=== PATIENT | male | born 1965 | race Caucasian/White ===

== ENCOUNTER 2017-05-12 18:52 | Inpatient (IN) | payer MEDICARE, MEDICAID ==
--- NOTE | 2017-05-12 19:21 | ED Physician Chart ---
ED Chief Complaint/HPI - Patient Information Date Seen:: 05/12/17 Time Seen:: 18:55 Chief Complaint:: Agitation History of Present Illness:: onset x 3 days of agitation and aggressive and hostile behavior; no report of SIs, trauma, H/As, neck pain, C/P, SOB, Abd. Pain, A/N/V/D/C, fever, chills, or urinary s/s Allergies:: Allergies Allergy/AdvReac Type Severity Reaction Status Date / Time No Known Allergies Allergy Verified 05/12/17 19:07 Vitals:: Vital Signs - 8 hr 05/12/17 18:54 Temp 97.5 F HR 74 RR 16 BP 150/79 O2 Sat % 98 Historian:: Patient, EMS Review:: Nurse's Note Reviewed, EMS run form Reviewed ED Review of Systems - Review of Systems General/Constitutional: No fever, No chills, No weight loss, No weakness, No diaphoresis, No edema, No loss of appetite Skin: No skin lesions, No rash, No bruising Head: No headache, No light-headedness Eyes: No loss of vision, No pain, No diplopia ENT: No earache, No nasal drainage, No sore throat, No tinnitus Neck: No neck pain, No swelling, No thyromegaly, No stiffness, No mass noted Cardio Vascular: No chest pain, No palpitations, No PND, No orthopnea, No edema Pulmonary: No SOB, No cough, No sputum, No wheezing GI: No nausea, No vomiting, No diarrhea, No pain, No melena, No hematochezia, No constipation, No hematemesis G/U: No dysuria, No frequency, No hematuria, No nacturia Musculoskeletal: No bone or joint pain, No back pain, No muscle pain Endocrine: No polyuria, No polydipsia Psychiatric: Prior psych history, No depression, Anxiety, No suicidal ideation, No homicidal ideation, No auditory hallucination, No visual hallucination Hematopoietic: No bruising, No lymphadenopathy Allergic/Immuno: No urticaria, No angioedema Neurological: No syncope, No focal symptoms, No weakness, No paresthesia, No headache, No seizure, No dizziness, No confusion, No vertigo ED Past Medical History - Past Medical History Obtainable: Yes Past Medical History: HTN, CVA/TIA, Dyslipidemia, PUD/GERD, Seizures Family History: Diabetes Melitus, HTN Social History: Non Smoker, No Alcohol, No Drug Use, Single, Care Facility Surgical History: None Psychiatricy History: Bipolar Medication: Reviewed Family Medical History - Family Member Mother History Unknown: Yes ED Physical Exam - Physical Examination General/Constitutional: Awake, Well-developed, well-nourished, Alert, No distress, GCS 15, Non-toxic appearing, Ambulatory Head: Atraumatic Eyes: Lids, conjuctiva normal, PERRL, EOMI Skin: Nl inspection, No rash, No skin lesions, No ecchymosis, Well hydrated, No lymphadenopathy ENMT: External ears, nose nl, TM canals nl, Nasal exam nl, Lips, teeth, gums nl , Oropharynx nl, Tonsils nl Neck: Nontender, Full ROM w/o pain, No JVD, No nuchal rigidity, No bruit, No mass, No stridor Respiratory: Nl effort/Exclusion, Clear to Auscultation, No Wheeze/Rhonchi/Rales Cardio Vascular: RRR, No murmur, gallop, rubs, NL S1 S2, Carotid/Femoral/Distal pulses equal bilaterally GI: No tenderness/rebounding/guarding, No organomegaly, No hernia, Normal BS's, Nondistended, No mass/bruits, No McBurney tenderness : No CVA tenderness Extremities: No tenderness or effusion, Full ROM, normal strength in all extremities, No edema, Normal digits & nails Neuro/Psych: Alert/oriented, DTR's symmetric, Normal sensory exam, Normal motor strength, Judgement/insight normal, Mood normal, Normal gait, No focal deficits Other Neuro/Psych comments:: + Psychomotor Agitation; Mood/Affect: Stable; no SIs Misc: Normal back, No paraspinal tenderness ED Labs/Radiology/EKG Results - Lab Results Comments:: unremarkable - EKG Interpretations EKG Time:: 19:34 Rate & Rhythm: 61; NSR Comments:: ROMELIA; LBBB; PVCs; non-specific st-t changes ED Septic Shock - . Is Septic Shock (SBP<90, OR Lactate>4 mmol\L) present?: No - <6hrs of presentation: Vital Signs: Vital Signs - 8 hr 05/12/17 18:54 Temp 97.5 F HR 74 RR 16 BP 150/79 O2 Sat % 98 ED Reassessment (Disposition) - Reassessment Reassessment Condition:: Improved - Diagnosis Diagnosis:: Dx: Agitation; Medical Clearance; Bipolar Disorder - Aftercare/Follow up Instructions Aftercare/Follow-Up Instructions:: Counseled pt regarding lab results/diagnosis & need follow up, Counseled pt & family regarding lab results/diagnosis & need follow up - Patient Disposition Discharge/Transfer:: Acute Care w/in this hosp Accepting Physician:: Dr. Starr Time Called:: 2044 Time Responded:: 20:45 Admitted to:: [facility] Spoke to:: Dr. Starr Admitting Medical Physician:: Dr. Starr Admitting Psych Physician:: Dr. Lopez Time:: 20:45 Condition at Disposition:: Stable, Improved ED Discharge Plan - Patient Disposition Instructions: Psychosis
[2017-05-12 20:14] LABS: % BASOPHILS 0.6 % (0.0-2.0); % EOSINOPHILS 2.4 % (0.0-5.0); % MONOCYTES 9.1 % (2.0-10.0); % NEUTROPHILS 58.9 % (40.0-80.0); EOSINOPHILE ABSOLUTE 0.1 Th/cmm (0.1-0.4); HEMATOCRIT 46.5 % (41.0-60); HEMOGLOBIN 15.4 gm/dL (12-16); LYMPHOCYTE ABSOLUTE 1.8 Th/cmm (1.5-3.0); MEAN CELL VOLUME 90.6 fl (80-99); MEAN CORPUSCULAR HGB CONC 33.1 pg (28.0-36.0); MEAN PLATELET VOLUME 9.9 fl; MONOCYTE ABSOLUTE 0.6 Th/cmm (0.3-1.0); NEUTROPHILE ABSOLUTE 3.7 Th/cmm (1.8-8.0); PLATELET COUNT 145 Th/cmm (150-400); RED BLOOD COUNT 5.14 Mil/cmm (4.30-5.70); RED CELL DISTRIBUTION WIDTH 12.9 % (11.5-20.0); WHITE BLOOD COUNT 6.2 Th/cmm (4.8-10.8)
[2017-05-12 20:18] LABS: ALB/GLOB RATIO 1.9 (1.0-1.8); ALBUMIN 4.2 gm/dL (4.2-5.5); ALKALINE PHOSPHATASE 56 U/L (34-104); ANION GAP 9.2 (7.0-16.0); BILIRUBIN,TOTAL 0.9 mg/dL (0.3-1.0); BUN - UREA NITROGEN 16 mg/dL (7-25); CALCIUM SERUM 9.1 mg/dL (8.6-10.3); CARBON DIOXIDE 26.4 mEq/L (21.0-31.0); CHLORIDE 103 mEq/L (98-107); CHOLESTEROL 127 mg/dL (<200); CREATININE - SERUM 0.6 mg/dL (0.7-1.3); GFR AFRICAN-AMERICAN > 60.0 ml/min (>90); GFR NON AFRICAN-AMERICAN > 60.0 ml/min; GLUCOSE 126 mg/dL (70-105); HDL -HIGH DENSITY LIPOPROTEIN 47 mg/dL (23-92); POTASSIUM SERUM 3.6 mEq/L (3.5-5.1); SGOT 11 U/L (13-39); SGPT/ALT 12 U/L (7-52); SODIUM SERUM 135 mEq/L (136-145); TOTAL PROTEIN,SERUM 6.4 gm/dL (6.0-8.3); TRIGLYCERIDES 109 mg/dL (<150)
[2017-05-12 20:27] LABS: ACETAMINOPHEN < 10.0 ug/mL (10.0-30.0); SALICYLATES (ASPIRIN) < 25.0 mg/L (30.0-100.0)
[2017-05-12] MEDS ORDERED: Magnesium Hydroxide (MOM) 30 mL UDC PO PRN (22:50)
[2017-05-12] MEDS ORDERED: Maalox 30 mL Cup PO PRN (22:50)
[2017-05-12 23:36] VITALS: BP 141/73
[2017-05-13] MEDS: Multivitamin Tab PO SCH (09:23)
[2017-05-13] MEDS ORDERED: LEVETIRACETAM PO SCH (10:15)
[2017-05-13] MEDS: Aspirin 81mg Chewable Tab PO SCH (10:53)
[2017-05-13] MEDS ORDERED: Non-Formulary Item 1 EA (Hydralazine Hcl [Hydralazine Hcl] 100 MG) PO SCH (14:00)
[2017-05-13] MEDS: Levetiracetam 500 mg/5mL 5mL UDSyr *for ORAL USE ONLY PO SCH ×2 (17:44→17:45)
[2017-05-13] MEDS: Atorvastatin Calcium 10 MG TAB PO SCH (21:00)
--- NOTE | 2017-05-13 23:44 | Consultation ---
DATE OF CONSULTATION: 05/13/2017 REFERRING PHYSICIAN: Dr. Ruiz. REASON FOR CONSULT: Medical management. HISTORY OF PRESENT ILLNESS: This is a 51-year-old gentleman with history of cerebrovascular accident with late effects including vascular dementia with behavioral disorder, essential hypertension, hypercholesterolemia, seizure disorder who was noted to have aggressive behavior at [facility] where he resides. The patient was transferred to the ER and now has been admitted to [facility] for further management and care. The patient is asleep, but arousable and not able to tell me any significant medical history. He answers with repeated "yes.". He appears to be comfortable, in no distress. PAST MEDICAL HISTORY: As noted above, also history of chronic anemia. PAST SURGICAL HISTORY: Unknown, but none listed. FAMILY HISTORY: Likely noncontributory to this admission. SOCIAL HISTORY: Unknown, but currently no tobacco, ETOH, or illicit drug usage. He lives at half-way facility. ALLERGIES: NKDA. OUTPATIENT MEDICATIONS: Aspirin 81 every day, atorvastatin 10 at bedtime, hydralazine 100 mg t.i.d., Keppra 750 b.i.d., lisinopril 20 mg b.i.d. REVIEW OF SYSTEMS: Unable to be done given patient's condition, but per notes from long term. No recent fever, chills, no weight loss. There is no report of chest pain, shortness of breath, or congestion. PHYSICAL EXAMINATION: VITAL SIGNS: Temperature 98.7, pulse 62, BP 141/73 with respiratory rate of 20, satting 97% on room air. GENERAL: He is a well-developed, well-nourished male, not in acute distress. HEAD AND NECK: Normocephalic, atraumatic. Pupils reactive to light. Extraocular movements are intact. NECK: There is no JVD or LAD. HEART: Regular rate and rhythm without any murmurs. LUNGS: Clear to auscultation bilaterally. ABDOMEN: Soft, supple, nontender, nondistended, normoactive bowel sounds. LOWER EXTREMITIES: No pedal edema. LABORATORY DATA: CBC within normal limits, platelet count is 145. Sodium 135. Rest of the BMP was within normal limits. Glucose 126. LFTs within normal limits. LDL 74, HDL 47. TSH 1.74. Toxicology results were negative. DIAGNOSTICS: EKG shows sinus rhythm at a rate of 61, no ST elevations or no ST wave changes. ASSESSMENT: 1. Acute psych decompensation. 2. History of vascular dementia with behavioral disorder. 3. CVA with late effects. 4. Essential hypertension. 5. History of seizure disorder. 6. History of chronic anemia. PLAN: The patient has been admitted to [facility] for further management and care. The patient will be kept on his current meds as scheduled. JOB# [id number] MTDD
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
[2017-05-14] MEDS: Aspirin 81mg Chewable Tab PO SCH (09:17)
[2017-05-14] MEDS: Multivitamin Tab PO SCH (09:18)
[2017-05-14] MEDS: Levetiracetam 500 mg/5mL 5mL UDSyr *for ORAL USE ONLY PO SCH ×2 (09:32→18:00)
[2017-05-14] MEDS: Atorvastatin Calcium 10 MG TAB PO SCH (21:16)
--- NOTE | 2017-05-15 03:40 | Progress Notes ---
DATE: 05/14/2017 SUBJECTIVE: Staff was spoken to. The patient is interviewed. Mood is noted to be irritable. Affect is constricted. The patient is still screaming and yelling and has been having difficult time to cope with the stress. The patient is very paranoid and is stating that there is no reason for him to be in here. The patient has been poorly cooperative at this time. ASSESSMENT: The patient is still psychotic and impulsive. PLAN: To continue the patient with current medications and encourage the patient to verbalize the concerns rather than to act out. JOB# [id number]
[2017-05-15] MEDS: Aspirin 81mg Chewable Tab PO SCH (09:33)
[2017-05-15] MEDS: Multivitamin Tab PO SCH (09:33)
[2017-05-15] MEDS: Levetiracetam 500 mg/5mL 5mL UDSyr *for ORAL USE ONLY PO SCH ×2 (09:38→16:34)
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
[2017-05-15] MEDS: Atorvastatin Calcium 10 MG TAB PO SCH (21:58)
--- NOTE | 2017-05-15 22:17 | Progress Notes ---
DATE: 05/15/2017 SUBJECTIVE: Staff was spoken to. The patient is interviewed. Mood is noted to be less irritable compared to the other days, insight and judgment are noted to be still impaired. Impulse control seems to be improving. No side effects to medications are noted. The patient has paranoia, but denies any command hallucinations. The patient, however, continues to be very resistive. The patient has no insight into his illness. ASSESSMENT: The patient is still impulsive. PLAN: To continue the patient with the current medications and follow up with the supportive therapy. JOB# [id number]
[2017-05-16] MEDS: Multivitamin Tab PO SCH (09:22)
[2017-05-16] MEDS: Aspirin 81mg Chewable Tab PO SCH (09:22)
[2017-05-16] MEDS: Levetiracetam 500 mg/5mL 5mL UDSyr *for ORAL USE ONLY PO SCH ×2 (09:50→17:09)
--- NOTE | 2017-05-16 21:49 | Progress Notes ---
DATE: 05/16/2017 PSYCHIATRIC PROGRESS NOTE SUBJECTIVE: Staff was spoken to. The patient is interviewed. Mood is noted to be irritable. Affect is constricted. The patient is screaming and yelling. The patient is very reluctant to participate in the groups. No side effects to the medications are noted. The patient tends to be isolative and withdrawn. Aggressive behavior is a major concern with this patient. ASSESSMENT: The patient is still impulsive. PLAN: To continue the patient with the supportive therapy and followup. [facility]# [id number]
[2017-05-16] MEDS: Atorvastatin Calcium 10 MG TAB PO SCH (22:00)
[2017-05-17] MEDS: Aspirin 81mg Chewable Tab PO SCH (09:29)
[2017-05-17] MEDS: Multivitamin Tab PO SCH (09:29)
[2017-05-17] MEDS: Levetiracetam 500 mg/5mL 5mL UDSyr *for ORAL USE ONLY PO SCH ×2 (10:28→16:45)
[2017-05-17] MEDS: Atorvastatin Calcium 10 MG TAB PO SCH (21:52)
--- NOTE | 2017-05-18 01:03 | Progress Notes ---
DATE: 05/17/2017 SUBJECTIVE: Staff was spoken to. The patient is interviewed. Mood is noted to be less irritable today. Insight and judgment are noted to be improving. Impulse control seems to be fair. The patient has been currently on low dose of Depakote that is 250 mg twice a day and Seroquel 25 mg at bedtime. The patient has been able to comply with the medications. No side effects to medications are noted. ASSESSMENT: The patient is stabilizing. PLAN: To continue the patient with the current medications. I encouraged the patient to verbalize the concerns rather than to act out. JOB# [id number]
[2017-05-18] MEDS: Multivitamin Tab PO SCH (09:32)
[2017-05-18] MEDS: Aspirin 81mg Chewable Tab PO SCH (09:32)
[2017-05-18] MEDS: Levetiracetam 500 mg/5mL 5mL UDSyr *for ORAL USE ONLY PO SCH (09:34)
--- NOTE | 2017-05-18 16:56 | Progress Notes ---
DATE: 05/18/2017 PSYCHIATRIC PROGRESS NOTE SUBJECTIVE: Staff was spoken to. The patient is interviewed. Mood is noted to be anxious. Affect is constricted. Insight and judgment noted to be improving. Impulse control seems to be fair. The patient is not presenting with any major behavioral problems. No acute psychotic symptoms are noted at this time. ASSESSMENT: The patient is stabilizing. PLAN: To continue the patient with current medications and discharge the patient for followup on outpatient basis. [facility]# [id number]
== END 2017-05-18 14:45 | disposition home or self-care (01) | DRG 885 ==
LOC: ER 18:52 → GERO2 21:45
PROVIDERS: ADMIT Psychiatry & Neurology Psychiatry; ATTEND Psychiatry & Neurology Psychiatry
DX: F23 Brief psychotic disorder (principal); F01.51 Vascular dementia, unspecified severity, with behavioral disturbance; F03.91 Unspecified dementia, unspecified severity, with behavioral disturbance; D64.9 Anemia, unspecified; F39 Unspecified mood [affective] disorder; G40.909 Epilepsy, unspecified, not intractable, without status epilepticus; F63.9 Impulse disorder, unspecified; I10 Essential (primary) hypertension; K21.9 Gastro-esophageal reflux disease without esophagitis; F31.9 Bipolar disorder, unspecified; E78.00 Pure hypercholesterolemia, unspecified; Z87.11 Personal history of peptic ulcer disease; Z83.3 Family history of diabetes mellitus; I69.30 Unspecified sequelae of cerebral infarction; Z82.49 Family history of ischemic heart disease and other diseases of the circulatory system
CPT/HCPCS: 36415-UA; 80053-TC; 80061-TC; 80320-TC; 80329-TC; 83036-90; 84443-TC; 85025-TC; 86592-TC; 93005; Z7610

== ENCOUNTER 2019-05-17 11:23 | Inpatient (IN) | payer MEDICARE, MEDICAID ==
[2019-05-17 17:13] VITALS: BP 160/88
[2019-05-17] MEDS ORDERED: Magnesium Hydroxide (MOM) 30 mL UDC PO PRN (17:38)
[2019-05-17] MEDS: Atorvastatin Calcium 10 MG TAB PO SCH (21:42)
[2019-05-18] MEDS ORDERED: Aspirin 81mg Chewable Tab PO SCH (09:00)
[2019-05-18] MEDS ORDERED: Multivitamin Tab PO SCH (09:00)
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
[2019-05-18] MEDS ORDERED: Maalox 30 mL Cup PO PRN (21:38)
[2019-05-18] MEDS ORDERED: Magnesium Hydroxide (MOM) 30 mL UDC PO PRN (21:41)
[2019-05-18] MEDS: Atorvastatin Calcium 10 MG TAB PO SCH (21:58)
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
[2019-05-19] MEDS ORDERED: LEVETIRACETAM PO SCH (09:00)
[2019-05-19] MEDS: Aspirin 81mg Chewable Tab PO SCH (09:58)
[2019-05-19] MEDS: Multivitamin Tab PO SCH (10:00)
--- NOTE | 2019-05-19 14:36 | Progress Notes ---
DATE: 05/19/2019 PSYCHIATRIC PROGRESS NOTE SUBJECTIVE: Staff was spoken to. The patient is interviewed. Mood is noted to be irritable. Affect is constricted. Insight and judgment at this time are noted to be still impaired. Impulse control is noted to be limited. Coping skills are noted to be limited. The patient has been having difficult time to cope with the stress. No side effects to the medications are noted. The patient is getting easily irritable and the patient is isolative and withdrawn with very limited participation in the groups. ASSESSMENT: The patient is still depressed and impulsive. PLAN: Plan to continue the patient with the supportive therapy and followup. JOB# [id number]
[2019-05-19] MEDS: Atorvastatin Calcium 10 MG TAB PO SCH (21:07)
--- NOTE | 2019-05-19 21:51 | Internal Medicine Prog Note ---
Internal Medicine Subjective - Subjective Service Date: 05/19/19 (No acute events noted) Patient seen and examined:: with staff, without staff Patient is:: awake Internal Medicine Objective - Results Recent Labs: Laboratory Last Values POC Glucose 84 MG/DL (70 - 105) 05/17/19 17:31 - Physical Exam Vitals and I&O: Vital Signs Temp 97.6 F 05/19/19 20:21 Pulse 67 05/19/19 21:06 Resp 20 05/19/19 20:21 BP 134/71 05/19/19 21:06 Pulse Ox 97 05/19/19 20:21 Intake & Output 05/19/19 05/19/19 05/20/19 06:59 18:59 06:59 Intake Total 240 120 Balance 240 120 Intake: Oral 240 120 Other: # Voids 2 2 # Bowel Movements 0 Active Medications: Current Medications Acetaminophen (Tylenol) 650 mg PO Q4HR PRN PRN Reason: Mild Pain 1-3 / Temp above 100 Stop: 07/17/19 21:37 Al Hydrox/Mg Hydrox/Simethicone (Maalox) 30 ml PO Q4HR PRN PRN Reason: GI DISTRESS Stop: 07/17/19 21:37 Aspirin (Aspirin Chewable) 81 mg PO DAILY [facility] Stop: 07/18/19 08:59 Last Admin: 05/19/19 09:58 Dose: 81 mg Atorvastatin Calcium (Lipitor) 10 mg PO HS [facility]; Protocol Stop: 07/18/19 20:59 Last Admin: 05/19/19 21:07 Dose: 10 mg Divalproex Sodium (Depakote Dr) 250 mg PO Q12HR [facility]; Protocol Stop: 07/18/19 08:59 Last Admin: 05/19/19 21:07 Dose: 250 mg Hydralazine HCl (Apresoline) 100 mg PO TID [facility] Stop: 07/18/19 08:59 Last Admin: 05/19/19 21:06 Dose: 100 mg Levetiracetam 500 mg/ (Levetiracetam 250 mg) 750 mg PO BID [facility] Stop: 07/18/19 16:59 Last Admin: 05/19/19 17:05 Dose: 750 mg Lisinopril (Zestril) 20 mg PO BID [facility] Stop: 07/18/19 08:59 Last Admin: 05/19/19 17:04 Dose: 20 mg Lorazepam (Ativan) 0.5 mg PO Q4HR PRN; Protocol PRN Reason: Anxiety Stop: 07/17/19 21:42 Magnesium Hydroxide (Milk Of Magnesia) 30 ml PO HS PRN PRN Reason: Constipation Stop: 07/17/19 21:40 Multivitamins/Vitamin C (Theragran) 1 tab PO DAILY [facility] Stop: 07/18/19 08:59 Last Admin: 05/19/19 10:00 Dose: 1 tab Quetiapine Fumarate (Seroquel) 25 mg PO HS [facility]; Protocol Stop: 07/18/19 20:59 Last Admin: 05/19/19 21:07 Dose: 25 mg Valproate Sodium (Depakene) 250 mg PO BID [facility]; Protocol Stop: 07/18/19 08:59 Last Admin: 05/19/19 17:05 Dose: 250 mg Zolpidem Tartrate (Ambien) 5 mg PO HS PRN PRN Reason: Insomnia Stop: 07/17/19 21:40 HEENT: PERRLA, EOMI Neck: No JVD Lungs: CTAB Cardiovascular: RRR, Normal S1, Normal S2, without murmur Extremities: clear - Procedures Procedures: Procedures Procedure Code Date BLOOD TRANSFUSION SERVICE 07298 09/29/11 CLOSED ENDOSCOPIC BIOPSY OF LARGE INTESTINE 45.25 09/29/11 COLONOSCOPY AND BIOPSY 49569 09/29/11 HEMODIALYSIS 39.95 09/29/11 INSERT NON-TUNNEL CV CATH [id number] 09/29/11 PACKED CELL TRANSFUSION 99.04 09/29/11 VENOUS CATHETERIZATION FOR RENAL DIALYSIS 38.95 09/29/11 Internal Medicine Assmt/Plan - Assessment Assessment: ACUTE PSYCH DECOMPENSATION HISTORY OF DEMENTIA WITH BEHAVIORAL DO HISRORY OF CVA WITH VASCULAR DEMENTIA ESSENTIAL HTN HISTORY OF HYPERLIPIDIMIA SEIZURE D/O - Plan Plan: CONT WITH CURRENT MGT AND CARE CONT WITH CURRENT HOME MEDS
[2019-05-20] MEDS: Aspirin 81mg Chewable Tab PO SCH (09:06)
[2019-05-20] MEDS: Multivitamin Tab PO SCH (09:06)
--- NOTE | 2019-05-20 12:23 | Consultation ---
DATE OF CONSULTATION: 05/19/2019 REFERRING PHYSICIAN: Bay Ruiz M.D. and John Lees M.D. TYPE OF CONSULTATION: Psychology. HISTORY OF PRESENT ILLNESS: The patient is a 53-year-old male. The patient is a resident of [facility]. The following is by review of the medical record and by the patient's self report. The patient is being admitted due to uncontainable behavior. The staff at the patient's facility reports that the patient had been getting easily upset and agitated along with screaming and yelling episodes. The staff also reported the patient was striking out and attempting to hit the staff members and was unable to be deescalated and contained at that level. Therefore, the patient was transferred here for stabilization. Upon interview, the patient does not know why he is being hospitalized and was unable to state where he was prior to his admission. PAST MEDICAL HISTORY: Please see history and physical by Dr. Starr. PAST PSYCHIATRIC HISTORY: The patient is under the care of Dr. Lees at the patient's placement. The patient's full psychiatric history is unavailable at the time of this clinical interview. SUBSTANCE ABUSE HISTORY: The patient did not answer questions about having any history of substance use or substance abuse. BRIEF PSYCHOSOCIAL HISTORY: The patient did not answer the question about occupational or educational history. Records indicate that the patient is and that his 's name is Charissa. The patient also has a daughter, Margi, who is involved in his care. The patient states that he is a Confucianism. The patient denied any current legal problems. The patient did not answer questions about history of physical or sexual abuse. MENTAL STATUS EXAMINATION: The patient appears to be older than his stated age. The patient's attitude is superficially cooperative, but mostly guarded. Eye contact is poor. Speech is loud. Mood is irritable. Affect is constricted. Thought process shows to be confused. The patient did not answer questions about experiencing suicidal or homicidal ideation, plan or intention. He did not answer the questions about experiencing auditory or visual hallucinations. However, there is some evidence of paranoid ideation. The patient's behavior has been difficult to redirect and to deescalate. Impulse control is inadequate. Concentration is poor and impaired. Sensorium is alert and oriented to self and place only. The patient did not participate in the memory assessment. It appears that the patient's short term and long-term memory may have deficits. This needs further evaluation. The patient did not participate in the interpretation of proverbs. Insight is poor. Judgment is impaired. DIAGNOSTIC IMPRESSION AXIS I: 1. Psychotic disorder, not otherwise specified. AXIS II: Deferred. AXIS III: Per Dr. Starr. TREATMENT PLAN: The patient has been seen by Dr. Ruiz for psychiatric evaluation and for the management of the patient's psychotropic medications. We will provide supportive psychotherapy to include reality orientation, differentiation and integration. We will provide limit setting and de-escalation as well as boundary definitions for the patient to appropriately interact with staff and to decrease his aggression and striking out behaviors. We will provide coping strategies for phase of life issues as well as for chronic mental illness. We will encourage the patient to verbally contract for safety, i.e., no harm to others and no harm to self. Thank you, Dr. Ruiz and Dr. Lees for this consult and the opportunity to participate with you in this patient's care. JOB# [id number] WILLIAM
--- NOTE | 2019-05-20 14:47 | Progress Notes ---
DATE: 05/20/2019 PSYCHIATRIC PROGRESS NOTE SUBJECTIVE: Staff was spoken to. The patient is interviewed. Mood is noted to be irritable. Affect is constricted. Insight and judgment are noted to be still impaired. Impulse control is noted to be limited. Coping skills are noted to be limited. The patient has been having difficult time to cope with the stress. No side effects to the medications are noted. The patient is noted to be extremely poor. The patient needs to be encouraged to get up and participate in the groups. ASSESSMENT: The patient is still impulsive. PLAN: To continue the patient with the supportive therapy and followup. JOB# [id number]
[2019-05-20] MEDS: Atorvastatin Calcium 10 MG TAB PO SCH (20:56)
[2019-05-21] MEDS: Aspirin 81mg Chewable Tab PO SCH ×2 (09:21→10:44)
[2019-05-21] MEDS: Multivitamin Tab PO SCH ×2 (09:22→10:45)
[2019-05-21] MEDS: Atorvastatin Calcium 10 MG TAB PO SCH (21:16)
--- NOTE | 2019-05-22 01:13 | Progress Notes ---
DATE: 05/21/2019 PSYCHIATRIC PROGRESS NOTE SUBJECTIVE: Staff was spoken to. The patient is interviewed. Mood is noted to be irritable. Affect is constricted. Insight and judgment are noted to be still impaired. Impulse control is noted to be limited. Coping skills are noted to be limited. The patient has no insight into his illness. The patient's coping skills are noted to be extremely poor at this time. The patient gets easily frustrated. Sleep is noted to be poor. Appetite is noted to be improving. ASSESSMENT: The patient is still impulsive. PLAN: To continue the patient with the supportive therapy and current medications. [facility]# [id number]
[2019-05-22] MEDS: Multivitamin Tab PO SCH (08:37)
[2019-05-22] MEDS: Aspirin 81mg Chewable Tab PO SCH (08:37)
[2019-05-22] MEDS: Atorvastatin Calcium 10 MG TAB PO SCH (21:14)
--- NOTE | 2019-05-22 21:20 | Internal Medicine Prog Note ---
Internal Medicine Subjective - Subjective Service Date: 05/22/19 (comfortable) Patient seen and examined:: without staff Patient is:: awake Internal Medicine Objective - Results Recent Labs: Laboratory Last Values POC Glucose 84 MG/DL (70 - 105) 05/17/19 17:31 - Physical Exam Vitals and I&O: Vital Signs Temp 98.5 F 05/22/19 20:35 Pulse 77 05/22/19 20:35 Resp 20 05/22/19 20:35 BP 143/57 05/22/19 20:35 Pulse Ox 97 05/22/19 20:35 Intake & Output 05/22/19 05/22/19 05/23/19 06:59 18:59 06:59 Intake Total 120 860 240 Balance 120 860 240 Intake: Oral 120 860 240 Other: # Voids 3 2 2 # Bowel Movements 0 0 Stool Characteristics Formed Formed Active Medications: Current Medications Acetaminophen (Tylenol) 650 mg PO Q4HR PRN PRN Reason: Mild Pain 1-3 / Temp above 100 Stop: 07/17/19 21:37 Al Hydrox/Mg Hydrox/Simethicone (Maalox) 30 ml PO Q4HR PRN PRN Reason: GI DISTRESS Stop: 07/17/19 21:37 Aspirin (Aspirin Chewable) 81 mg PO DAILY [facility] Stop: 07/18/19 08:59 Last Admin: 05/22/19 08:37 Dose: 81 mg Atorvastatin Calcium (Lipitor) 10 mg PO HS [facility]; Protocol Stop: 07/18/19 20:59 Last Admin: 05/21/19 21:16 Dose: 10 mg Divalproex Sodium (Depakote Dr) 250 mg PO Q12HR [facility]; Protocol Stop: 07/18/19 20:59 Hydralazine HCl (Apresoline) 100 mg PO TID [facility] Stop: 07/18/19 08:59 Last Admin: 05/22/19 14:00 Dose: 100 mg Levetiracetam 500 mg/ (Levetiracetam 250 mg) 750 mg PO BID [facility] Stop: 07/18/19 16:59 Last Admin: 05/22/19 16:46 Dose: 750 mg Lisinopril (Zestril) 20 mg PO BID [facility] Stop: 07/18/19 08:59 Last Admin: 05/22/19 16:46 Dose: 20 mg Lorazepam (Ativan) 0.5 mg PO Q4HR PRN; Protocol PRN Reason: Anxiety Stop: 07/17/19 21:42 Magnesium Hydroxide (Milk Of Magnesia) 30 ml PO HS PRN PRN Reason: Constipation Stop: 07/17/19 21:40 Multivitamins/Vitamin C (Theragran) 1 tab PO DAILY [facility] Stop: 07/18/19 08:59 Last Admin: 05/22/19 08:37 Dose: 1 tab Quetiapine Fumarate (Seroquel) 25 mg PO HS [facility]; Protocol Stop: 07/18/19 20:59 Last Admin: 05/21/19 21:16 Dose: 25 mg Valproate Sodium (Depakene) 250 mg PO BID [facility]; Protocol Stop: 07/18/19 08:59 Last Admin: 05/22/19 16:46 Dose: 250 mg Zolpidem Tartrate (Ambien) 5 mg PO HS PRN PRN Reason: Insomnia Stop: 07/17/19 21:40 HEENT: PERRLA, EOMI Neck: No JVD Lungs: CTAB Cardiovascular: RRR, Normal S1, Normal S2, without murmur Extremities: clear - Procedures Procedures: Procedures Procedure Code Date BLOOD TRANSFUSION SERVICE 86615 09/29/11 CLOSED ENDOSCOPIC BIOPSY OF LARGE INTESTINE 45.25 09/29/11 COLONOSCOPY AND BIOPSY 33641 09/29/11 HEMODIALYSIS 39.95 09/29/11 INSERT NON-TUNNEL CV CATH [id number] 09/29/11 PACKED CELL TRANSFUSION 99.04 09/29/11 VENOUS CATHETERIZATION FOR RENAL DIALYSIS 38.95 09/29/11 Internal Medicine Assmt/Plan - Assessment Assessment: ACUTE PSYCH DECOMPENSATION HISTORY OF DEMENTIA WITH BEHAVIORAL DO HISRORY OF CVA WITH VASCULAR DEMENTIA ESSENTIAL HTN HISTORY OF HYPERLIPIDIMIA SEIZURE D/O - Plan Plan: CONT WITH CURRENT MGT AND CARE CONT WITH CURRENT HOME MEDS Nutritional Asmnt/Malnutr-PDOC - Dietary Evaluation Malnutrition Findings (Please click <Entered> for more info): Nutritional Asmnt/Malnutrition Start: 05/20/19 10: 27 Text: Status: Complete Freq: Protocol: Document 05/20/19 10:27 MMHEIDE (Rec: 05/20/19 10:39 MMHEIDE VILLANUEVA [email or web address]) Nutritional Asmnt/Malnutrition Patient General Information Nutritional Screening Moderate Risk Diagnosis Psychosis Pertinent Medical Hx/Surgical Hx right sided CVA, left knee contracture, seizures, HTN, hyperlipidemia, Anemia. Subjective Information Patient was admitted from [facility]. Persian speaking. Current Diet Order/ Nutrition Support Mechanical soft, cardiac, nectar thick liquids, no added sodium Patient / S.O Not Indicated Pertinent Medications maalox, lipitor, MOM, Theragran Pertinent Labs POC glucose 84 Nutritional Hx/Data Height 1.68 m Height (Calculated Centimeters) 167.6 Current Weight (lbs) 74.843 kg Weight (Calculated Kilograms) 74.8 Weight (Calculated Grams) 99462.7 [place] Body Weight 142 % [place] Body Weight 116 Body Mass Index (BMI) 26.6 Recent Weight Change No Weight Status Overweight GI Symptoms GI Symptoms None Last BM 3/5 x 2 Difficult in: None Food Allergies No Cultural/Ethnic/Mormonism Belief none indicated Usual diet at home unknown Skin Integrity/Comment: Son 17, intact Current %PO Good (75-100%) Estimated Nutritional Goals BEE in Kcals: Using Current wt Calories/Kcals/Kg 75kg CBW 25-30 kcal/kg Kcals Calculated ~0086-5748 kcal/day Protein: Using Current wt Protein g/k.8-1 gm/kg Protein Calculated ~60-75 gm/day Fluid: ml ~6152-6771 ml/day (1 ml/kcal) Nutritional Problem No current Nutrition Prob Problem No nutrition diagnosis at this time Intervention/Recommendation Comments 1. Continue current diet as tolerated by patient. Expected Outcomes/Goals Expected Outcomes/Goals Adequate nutrition to meet >75 % estimated needs, improved labs, skin remains intact, weight maintenance or trend toward ideal body weight. F/U LR 05/26-
--- NOTE | 2019-05-22 22:24 | Progress Notes ---
DATE: 05/22/2019 PSYCHOLOGY PROGRESS NOTE SUBJECTIVE: The patient is seen and is interviewed. Case is discussed with staff. The patient presents as irritable and easily agitated. The patient has poor insight into his illness as well as the reasons for hospitalization. The patient continues to get frustrated. The patient claimed that his sleep is poor. OBJECTIVE: Mood is irritable. Affect is constricted. Thought process shows to be confused. The patient did not answer questions about experiencing hallucinations or delusions. The patient has been withdrawn in his room, but is impulsive with the staff and is easily agitated. ASSESSMENT: The patient's impulsivity persists. PLAN: We provided de-escalation and limit setting. We provided remotivation for the patient to become compliant and stay compliant with his care and treatment. We provided coping strategies for phase of life issues. We provided stress management to assist the patient in increasing his frustration tolerance. We will follow up in 2-3 days to continue the present treatment if the patient remains on the unit and is able to demonstrate the capacity to benefit from psychology services. JOB# [id number] WILLIAM
--- NOTE | 2019-05-23 00:29 | Progress Notes ---
DATE: 05/22/2019 PSYCHIATRIC PROGRESS NOTE SUBJECTIVE: Staff was spoken to. The patient is interviewed. Mood is noted to be irritable. Affect is constricted. Coping skills are noted to be extremely poor. The patient has been isolative and withdrawn. The patient is reluctant to participate in any of the groups. The patient gets easily frustrated when he is asked to get into the groups. Sleep is noted to be fair. Appetite is noted to be improving. No side effects to the medications are noted. ASSESSMENT: The patient is still impulsive. PLAN: To continue the patient with the current medications. I encouraged the patient to verbalize the concerns rather than to act out. JOB# [id number]
[2019-05-23] MEDS: Aspirin 81mg Chewable Tab PO SCH (08:36)
[2019-05-23] MEDS: Multivitamin Tab PO SCH (08:37)
[2019-05-23] MEDS: Atorvastatin Calcium 10 MG TAB PO SCH (20:57)
--- NOTE | 2019-05-24 00:50 | Progress Notes ---
DATE: 05/23/2019 PSYCHIATRIC PROGRESS NOTE SUBJECTIVE: Staff was spoken to. The patient is interviewed. Mood is noted to be irritable. Affect is constricted. The patient is isolative and withdrawn. Coping skills are noted to be extremely poor. Sleep and appetite are also noted to be very poor. The patient is reluctant to participate in any of the groups. ASSESSMENT: The patient is still impulsive. PLAN: To continue the patient with the supportive therapy and followup. JOB# [id number]
[2019-05-24] MEDS: Multivitamin Tab PO SCH (08:47)
[2019-05-24] MEDS: Aspirin 81mg Chewable Tab PO SCH (08:47)
--- NOTE | 2019-05-24 21:44 | Progress Notes ---
DATE: 05/24/2019 PSYCHOLOGY PROGRESS NOTE SUBJECTIVE: The patient is seen and is interviewed. Case is discussed with staff. The patient continues to present as irritable. Staff reports the patient continues to isolate. The patient is not participating in the milieu therapy. According to staff, the patient is having difficulty providing information to the clinical questions being presented to him. OBJECTIVE: Mood is irritable. Affect is constricted. Thought process shows to be confused. The patient did not answer questions about experiencing hallucinations or delusions. The patient is reluctant to follow through with care and is only intermittently compliant. ASSESSMENT: The patient's impulsivity persists. PLAN: We will continue the supportive psychotherapy to include remotivation for the patient to become compliant and stay compliant with all aspects of his care and treatment. We encouraged the patient to verbalize his concerns to the staff and to interact appropriately versus acting out. We provided coping strategies for phase of life issues. We will follow up in 2-3 days if the patient remains on the unit. Staff indicated the patient may possibly discharge today. JOB# [id number] WILLIAM
--- NOTE | 2019-05-25 02:54 | Progress Notes ---
DATE: 05/24/2019 PSYCHIATRIC PROGRESS NOTE SUBJECTIVE: A 53-year-old male, Indonesian speaking, admitted for impulse control problems. The patient has been closely monitored. The patient has been continued on valproic acid 25 mg twice a day. The patient has been given 25 mg of the Seroquel. The patient with these medications has been observed and was noted to be doing fairly well and the counseling case manager has been requested to work with the facility to see if we can discharge the patient today. ASSESSMENT: The patient is stabilizing. PLAN: To continue the patient with the supportive therapy and wait for the discharge. JOB# [id number]
--- NOTE | 2019-05-30 14:21 | Discharge Summary ---
DATE OF DISCHARGE: 05/24/2019 IDENTIFYING DATA: The patient is a 53-year-old male descent of [facility]. JUSTIFICATION OF HOSPITALIZATION: The patient is admitted in view of his out of control behavior. CHIEF COMPLAINT: "I don't know." DIAGNOSES AT THE TIME OF ADMISSION: AXIS I: Unspecified psychosis. 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 AXIS II: None. AXIS III: Seizure disorder, hyperlipidemia, anemia, hypertension, and history of CVA. HOSPITAL COURSE AND RESPONSE TO TREATMENT: Please refer the 05/18/2019 dictation done by me. Physical examination at the time of admission was requested to be done by Dr. Starr. HOSPITAL COURSE AND RESPONSE TO TREATMENT: The patient has been observed on inpatient unit, provided with supportive psychotherapy. The patient has been encouraged to participate in the groups and verbalize the concerns. The patient has been placed on the valproic acid in view of his aggression and mood swings. The patient has been placed on Seroquel 25 mg. With these medications, the patient was observed and was noted to be doing fairly well and hence the patient was finally discharged on 05/24/2019 with recommendation that he is going to be seeking treatment on an outpatient basis. MENTAL STATUS EXAMINATION: At the time of discharge, the patient is noted to be less irritable. Affect is appropriate. Not suicidal or homicidal. Insight and judgment are noted to be fair. Impulse control is noted to be fair. No side effects to the medications are noted. The patient has been able to verbalize the concerns. The patient is not presenting with any threats to harm self or others. DIAGNOSES AT THE TIME OF DISCHARGE: AXIS I: Mood disorder, not otherwise specified. AXIS II: None. AXIS III: As per Dr. Starr. AFTERCARE PLAN: The patient is discharged to be followed up on an outpatient basis. PROGNOSIS: At the time of discharge noted to be fair with the treatment. JOB# [id number]
== END 2019-05-24 17:00 | DRG 885 ==
LOC: GERO 16:37
PROVIDERS: ADMIT Psychiatry & Neurology Psychiatry; ATTEND Psychiatry & Neurology Psychiatry
DX: F39 Unspecified mood [affective] disorder (principal); F01.51 Vascular dementia, unspecified severity, with behavioral disturbance; F23 Brief psychotic disorder; D64.9 Anemia, unspecified; I10 Essential (primary) hypertension; G40.909 Epilepsy, unspecified, not intractable, without status epilepticus; E78.5 Hyperlipidemia, unspecified; I69.919 Unspecified symptoms and signs involving cognitive functions following unspecified cerebrovascular disease
CPT/HCPCS: 82948-90; 83036-90; Z7610